=== PATIENT | female | born 1985 ===

== ENCOUNTER 2023-05-16 11:47 | Day surgery (SDC) | payer OTHER ==
[~2023-05-16] VITALS: Ht 165.1 cm; Wt 147.4 kg
[~2023-05-16 11:47] MED LIST: ALBUTEROL0.63 MG/3 IH
== END 2023-05-16 20:45 | disposition home or self-care (01) ==
LOC: CIR.AMB 11:47
PROVIDERS: ATTEND Student in an Organized Health Care Education/Training Program
DX: N85.01 Benign endometrial hyperplasia (principal); Z20.822 Contact with and (suspected) exposure to COVID-19; I10 Essential (primary) hypertension